=== PATIENT | female | born 1985 | race Caucasian/White ===

== ENCOUNTER 2020-10-06 12:49 | Inpatient (IN) | payer SELFPAY ==
--- NOTE | 2020-10-06 12:57 | W.ED.PSYCH ---
Documented by User: SORAIDA Kinsey 10/06/20 14:49 HPI - Psych General: Chief Complaint: Psychiatric Symptoms Stated Complaint: psych eval Time Seen by Provider: 10/06/20 12:50 Source: patient Mode of arrival: ambulatory Limitations: no limitations History of Present Illness: HPI Narrative: Patient is a 35-year-old female who presents to ED today hoping to receive some psychiatric help in regards to her severe fluctuations in emotions. Patient tells me she recently checked herself into a drug rehabilitation center in [place], [place]. 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 Patient tells me she feels determined to stay clean and wants to stay at the rehab facility however she finds herself struggling immensely with emotional lability. Patient states she becomes very irritated and agitated during therapy sessions. She will often cry hysterically. She has irrational fears of being locked up forever . Patient tells me she suffers from a great deal of PTSD that has been untreated. She states her mother committed suicide when she was 13 years old. She states she was when she was 16 years old. She has had her kids taken from her due to her previous drug use. Patient is not suicidal or homicidal. She is not experiencing hallucinations. Onset (ago): day(s) Duration: constant Context: other (in rehab) Associated psychiatric symptoms: racing thoughts Associated symptoms: Deny auditory hallucinations, visual hallucinations, depression, homicidal ideation or suicidal ideation Treatments prior to arrival: none Review of Systems Const: Denies: fever(s) or chills Card: Denies: chest pain, palpitations, lightheadedness or syncope Resp: Denies: dyspnea GI: Denies: abdominal pain, nausea, vomiting or diarrhea Skin/Breast: Denies: rash Neuro: Denies: headache(s) Psych: Reports: anxiety, mood swings and irritability; Denies: depression, visual hallucinations, auditory hallucinations, suicidal ideation or homicidal ideation Physical Exam Const: COMMON NORMALS: no acute distress, patient oriented x3, alert and well nourished GENERAL APPEARANCE: cooperative ORIENTATION/CONSCIOUSNESS: Yes awake, Yes oriented to person, Yes oriented to place and Yes oriented to time Resp: COMMON NORMALS: normal respiratory effort and clear to auscultation bilaterally AUSCULTATION: clear to auscultation bilaterally Cardio: COMMON NORMALS: regular rate and regular rhythm RATE: regular rate RHYTHM: regular rhythm Neuro: JUAN COMA SCALE: document GCS findings [place] coma scale eye opening: Spontaneous Juan coma scale verbal response: Orientated Juan coma scale motor response: Obey commands Juan coma scale total score: 15 COMMON NORMALS: patient oriented x3 SENSORIUM/ORIENTATION: Yes alert, Yes oriented to person, Yes oriented to place and Yes oriented to time Psych: COMMON NORMALS: mental status grossly normal, Normal thought process present, cooperative, denies hallucinations, denies homicidal ideation and denies suicidal ideation APPEARANCE: Yes grossly normal ATTITUDE: Yes calm ACTIVITY/MOTOR BEHAVIOR: Yes appropriate eye contact and Yes hyperactivity SPEECH: Yes excessive MOOD & AFFECT: Yes tearful, Yes fearful and Yes Labile affect present THOUGHT PROCESS: Normal thought process present THOUGHT CONTENT: Yes Normal thought content present ATTENTION/CONCENTRATION: Yes attention grossly intact and Yes concentration grossly intact MEMORY/COGNITION: Yes memory grossly intact and Yes cognition grossly intact INSIGHT: Good insight present (Psych) JUDGEMENT: Good judgement present (Psych) MDM - Psych Lab Data: Labs: Lab Results 10/06/20 10/06/20 10/06/20 Range/Units 13:26 13:26 13:26 WBC 9.7 (4.0-10.0) 10^3/ uL RBC 5.08 (4.1-5.3) 10^6/u L Hgb 14.0 (11.5-15.3) g/dL Hct 43.6 (37.0-47.0) % MCV 85.8 (81-99) fL MCH 27.6 L (28.0-34.0) pg MCHC 32.1 (30.0-36.0) g/dL RDW 13.5 (12.1-15.1) % Plt Count 244 (130-400) 10^3/c mm MPV 11.3 H (7.4-10.4) fL Neut % (Auto) 72.6 % Lymph % (Auto) 20.3 % Beckham % (Auto) 4.8 % Eos % (Auto) 0.9 % Baso % (Auto) 0.9 % Neut # (Auto) 7.01 (1.8-7.7) 10^3/u L Lymph # (Auto) 2.0 (0.8-4.8) 10^3/u L Beckham # (Auto) 0.5 (0.2-0.9) 10^3/u L Eos # (Auto) 0.1 (0.0-0.8) 10^3/u L Baso # (Auto) 0.1 (0.0-0.1) 10^3/u L Nucleated RBC % (a uto) 0 % Nucleated RBCs # 0.0 /100WBC Sodium 142 (136-145) mmol/L Potassium 3.8 (3.5-5.1) mmol/L Chloride 103 (98-107) mmol/L Carbon Dioxide 26 (22-29) mmol/L Anion Gap 16.8 (5-19) BUN 11 (6-20) mg/dL Creatinine 0.6 (0.5-0.9) mg/dL GFR Calculation 115.1 (90-130) mL/min Glucose 115 (65-115) mg/dL Calculated Osmolal ity 294 (285-295) mOsm/k g Calcium 9.2 (8.5-10.5) mg/dL Total Bilirubin 0.2 (0.15-1.2) mg/dL AST 17 (0-32) U/L ALT 15 (0-33) U/L Alkaline Phosphata se 56 (35-105) IU/L Total Protein 6.9 (6.6-8.7) g/dL Albumin 4.4 (3.5-5.2) g/dL Globulin 2.5 (1.3-4.6) g/dL HCG, Qual Negative (Negative) Salicylates < 0.3 L (3-10) mg/dL Urine Opiates Scre en (Negative) ng/mL Acetaminophen 12.6 (10-30) ug/mL Ur Barbiturates Sc reen (Negative) ng/mL Ur Phencyclidine S crn (Negative) ng/mL Ur Amphetamines Sc reen (Negative) ng/mL U Benzodiazepines Scrn (Negative) ng/mL Urine Cocaine Scre en (Negative) ng/mL U Marijuana (THC) Screen (Negative) ng/mL Ethyl Alcohol < 10 (0-10) mg/dL 10/06/20 Range/Units 13:38 WBC (4.0-10.0) 10^3/ uL RBC (4.1-5.3) 10^6/u L Hgb (11.5-15.3) g/dL Hct (37.0-47.0) % MCV (81-99) fL MCH (28.0-34.0) pg MCHC (30.0-36.0) g/dL RDW (12.1-15.1) % Plt Count (130-400) 10^3/c mm MPV (7.4-10.4) fL Neut % (Auto) % Lymph % (Auto) % Beckham % (Auto) % Eos % (Auto) % Baso % (Auto) % Neut # (Auto) (1.8-7.7) 10^3/u L Lymph # (Auto) (0.8-4.8) 10^3/u L Beckham # (Auto) (0.2-0.9) 10^3/u L Eos # (Auto) (0.0-0.8) 10^3/u L Baso # (Auto) (0.0-0.1) 10^3/u L Nucleated RBC % (a uto) % Nucleated RBCs # /100WBC Sodium (136-145) mmol/L Potassium (3.5-5.1) mmol/L Chloride (98-107) mmol/L Carbon Dioxide (22-29) mmol/L Anion Gap (5-19) BUN (6-20) mg/dL Creatinine (0.5-0.9) mg/dL GFR Calculation (90-130) mL/min Glucose (65-115) mg/dL Calculated Osmolal ity (285-295) mOsm/k g Calcium (8.5-10.5) mg/dL Total Bilirubin (0.15-1.2) mg/dL AST (0-32) U/L ALT (0-33) U/L Alkaline Phosphata se (35-105) IU/L Total Protein (6.6-8.7) g/dL Albumin (3.5-5.2) g/dL Globulin (1.3-4.6) g/dL HCG, Qual (Negative) Salicylates (3-10) mg/dL Urine Opiates Scre en Negative (Negative) ng/mL Acetaminophen (10-30) ug/mL Ur Barbiturates Sc reen Negative (Negative) ng/mL Ur Phencyclidine S crn Negative (Negative) ng/mL Ur Amphetamines Sc reen Negative (Negative) ng/mL U Benzodiazepines Scrn Negative (Negative) ng/mL Urine Cocaine Scre en Negative (Negative) ng/mL U Marijuana (THC) Screen Negative (Negative) ng/mL Ethyl Alcohol (0-10) mg/dL Discharge Plan Discharge Patient Disposition: Admitted As Inpatient Admit Provider: Ritchie Salas Clinical Impression: Emotional lability Condition: Stable Coding Level of Care Code ED Audiovisual Technician for Chg Fwd Exam Detailed Documented by User: Luis Alberto Real MD 10/07/20 18:12 HPI - Psych General: Chief Complaint: Psychiatric Symptoms Stated Complaint: psych eval Time Seen by Provider: 10/06/20 12:50 MDM - Psych Lab Data: Labs: Lab Results 10/06/20 10/06/20 10/06/20 Range/Units 13:26 13:26 13:26 WBC 9.7 (4.0-10.0) 10^3/ uL RBC 5.08 (4.1-5.3) 10^6/u L Hgb 14.0 (11.5-15.3) g/dL Hct 43.6 (37.0-47.0) % MCV 85.8 (81-99) fL MCH 27.6 L (28.0-34.0) pg MCHC 32.1 (30.0-36.0) g/dL RDW 13.5 (12.1-15.1) % Plt Count 244 (130-400) 10^3/c mm MPV 11.3 H (7.4-10.4) fL Neut % (Auto) 72.6 % Lymph % (Auto) 20.3 % Beckham % (Auto) 4.8 % Eos % (Auto) 0.9 % Baso % (Auto) 0.9 % Neut # (Auto) 7.01 (1.8-7.7) 10^3/u L Lymph # (Auto) 2.0 (0.8-4.8) 10^3/u L Beckham # (Auto) 0.5 (0.2-0.9) 10^3/u L Eos # (Auto) 0.1 (0.0-0.8) 10^3/u L Baso # (Auto) 0.1 (0.0-0.1) 10^3/u L Nucleated RBC % (a uto) 0 % Nucleated RBCs # 0.0 /100WBC Sodium 142 (136-145) mmol/L Potassium 3.8 (3.5-5.1) mmol/L Chloride 103 (98-107) mmol/L Carbon Dioxide 26 (22-29) mmol/L Anion Gap 16.8 (5-19) BUN 11 (6-20) mg/dL Creatinine 0.6 (0.5-0.9) mg/dL GFR Calculation 115.1 (90-130) mL/min Glucose 115 (65-115) mg/dL Calculated Osmolal ity 294 (285-295) mOsm/k g Calcium 9.2 (8.5-10.5) mg/dL Total Bilirubin 0.2 (0.15-1.2) mg/dL AST 17 (0-32) U/L ALT 15 (0-33) U/L Alkaline Phosphata se 56 (35-105) IU/L Total Protein 6.9 (6.6-8.7) g/dL Albumin 4.4 (3.5-5.2) g/dL Globulin 2.5 (1.3-4.6) g/dL HCG, Qual Negative (Negative) Salicylates < 0.3 L (3-10) mg/dL Urine Opiates Scre en (Negative) ng/mL Acetaminophen 12.6 (10-30) ug/mL Ur Barbiturates Sc reen (Negative) ng/mL Ur Phencyclidine S crn (Negative) ng/mL Ur Amphetamines Sc reen (Negative) ng/mL U Benzodiazepines Scrn (Negative) ng/mL Urine Cocaine Scre en (Negative) ng/mL U Marijuana (THC) Screen (Negative) ng/mL Ethyl Alcohol < 10 (0-10) mg/dL 10/06/20 Range/Units 13:38 WBC (4.0-10.0) 10^3/ uL RBC (4.1-5.3) 10^6/u L Hgb (11.5-15.3) g/dL Hct (37.0-47.0) % MCV (81-99) fL MCH (28.0-34.0) pg MCHC (30.0-36.0) g/dL RDW (12.1-15.1) % Plt Count (130-400) 10^3/c mm MPV (7.4-10.4) fL Neut % (Auto) % Lymph % (Auto) % Beckham % (Auto) % Eos % (Auto) % Baso % (Auto) % Neut # (Auto) (1.8-7.7) 10^3/u L Lymph # (Auto) (0.8-4.8) 10^3/u L Beckham # (Auto) (0.2-0.9) 10^3/u L Eos # (Auto) (0.0-0.8) 10^3/u L Baso # (Auto) (0.0-0.1) 10^3/u L Nucleated RBC % (a uto) % Nucleated RBCs # /100WBC Sodium (136-145) mmol/L Potassium (3.5-5.1) mmol/L Chloride (98-107) mmol/L Carbon Dioxide (22-29) mmol/L Anion Gap (5-19) BUN (6-20) mg/dL Creatinine (0.5-0.9) mg/dL GFR Calculation (90-130) mL/min Glucose (65-115) mg/dL Calculated Osmolal ity (285-295) mOsm/k g Calcium (8.5-10.5) mg/dL Total Bilirubin (0.15-1.2) mg/dL AST (0-32) U/L ALT (0-33) U/L Alkaline Phosphata se (35-105) IU/L Total Protein (6.6-8.7) g/dL Albumin (3.5-5.2) g/dL Globulin (1.3-4.6) g/dL HCG, Qual (Negative) Salicylates (3-10) mg/dL Urine Opiates Scre en Negative (Negative) ng/mL Acetaminophen (10-30) ug/mL Ur Barbiturates Sc reen Negative (Negative) ng/mL Ur Phencyclidine S crn Negative (Negative) ng/mL Ur Amphetamines Sc reen Negative (Negative) ng/mL U Benzodiazepines Scrn Negative (Negative) ng/mL Urine Cocaine Scre en Negative (Negative) ng/mL U Marijuana (THC) Screen Negative (Negative) ng/mL Ethyl Alcohol (0-10) mg/dL Discharge Plan Discharge Patient Disposition: Admitted As Inpatient Admit Provider: Ritchie Salas Clinical Impression: Emotional lability Condition: Stable Coding Level of Care Code ED Audiovisual Technician for [facility] Fwd Exam Detailed
[2020-10-06 13:01] VITALS: BP 132/77; PULSE 114; RESP 18; TEMP 36.7; O2SAT 99; BMI 25.7
[2020-10-06 13:36] LABS: Basophils # 0.1 10^3/uL (0.0-0.1); Basophils % 0.9 %; Eosinophils # 0.1 10^3/uL (0.0-0.8); Eosinophils % 0.9 %; Hematocrit 43.6 % (37.0-47.0); Lymphocytes % 20.3 %; Mean Corpuscular HGB Conc 32.1 g/dL (30.0-36.0); Mean Corpuscular Hemoglobin 27.6 pg (28.0-34.0); Mean Corpuscular Volume 85.8 fL (81-99); Mean Platelet Volume 11.3 fL (7.4-10.4); Monocytes # 0.5 10^3/uL (0.2-0.9); Monocytes % 4.8 %; Neutrophils # 7.01 10^3/uL (1.8-7.7); Neutrophils % 72.6 %; Nucleated Red Blood Cells % 0 %; Platelet Count 244 10^3/cmm (130-400); Red Blood Count 5.08 10^6/uL (4.1-5.3); Red Cell Distribution Width 13.5 % (12.1-15.1); White Blood Count 9.7 10^3/uL (4.0-10.0)
[2020-10-06 13:51] LABS: Acetaminophen 12.6 ug/mL (10-30); Alanine Aminotransferase 15 U/L (0-33); Albumin Level 4.4 g/dL (3.5-5.2); Alcohol Level < 10 mg/dL (0-10); Alkaline Phosphatase 56 IU/L (35-105); Anion Gap 16.8 (5-19); Aspartate Amino Transferase 17 U/L (0-32); Blood Urea Nitrogen 11 mg/dL (6-20); Calcium 9.2 mg/dL (8.5-10.5); Carbon Dioxide 26 mmol/L (22-29); Chloride 103 mmol/L (98-107); Globulin 2.5 g/dL (1.3-4.6); Glomerular Filtration Rate 115.1 mL/min (90-130); Glucose 115 mg/dL (65-115); Osmolality Calculated 294 mOsm/kg (285-295); Potassium 3.8 mmol/L (3.5-5.1); Salicylate < 0.3 mg/dL (3-10); Sodium 142 mmol/L (136-145); Total Bilirubin 0.2 mg/dL (0.15-1.2); Total Protein 6.9 g/dL (6.6-8.7)
[2020-10-06 14:43] LABS: HCG, Serum Qual Negative (Negative)
[2020-10-06 14:44] LABS: Amphetamines Screen Urine Negative (Negative); Barbiturates Screen Urine Negative (Negative); Benzodiazepines Screen Urine Negative (Negative); Cocaine Screen Urine Negative (Negative); Opiate Screen Urine Negative (Negative); PCP Screen Urine Negative (Negative); THC Screen Urine Negative (Negative)
[2020-10-06 15:18] VITALS: BP 116/81; PULSE 111; RESP 18; TEMP 36.7; O2SAT 97
[2020-10-06] MEDS: nicotine 2 mg Gum BUCCAL ×2 (16:01→19:22)
[2020-10-06] MEDS: hyDROXYzine 25 mg Capsule 50 MG PO (16:27)
--- NOTE | 2020-10-06 17:21 | PC.NURSE ---
1625: Patient presents to the Nurses Station tearful stating she needs something for her nerves. Offered her Vistaril and she agreed to take the medication. Vistaril administered per order. Will continue to closely monitor. ADRIEL JAY
[2020-10-06 19:36] VITALS: BP 97/59; PULSE 93; RESP 18; TEMP 37.1; O2SAT 97
[2020-10-07 06:00] VITALS: BP 106/63; PULSE 75; RESP 16; TEMP 36.7; O2SAT 97
[2020-10-07] MEDS: nicotine 2 mg Gum BUCCAL ×2 (09:32→14:15)
[2020-10-07] MEDS: citalopram 20 mg Tablet 10 MG PO (11:11)
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
[2020-10-07 12:49] VITALS: BP 107/57; PULSE 77; RESP 17; TEMP 36.8; O2SAT 95
[2020-10-07] MEDS: hyDROXYzine 25 mg Capsule 50 MG PO (15:38)
--- NOTE | 2020-10-07 15:40 | PC.NURSE ---
PRN Vistaril/increased anxiety Patient is at nurses station, tearful, asking about discharge plans to rehab, and concerns about whether it will be outpatient or inpatient. Requesting something for anxiety. PRN Vistaril given at this time.
[2020-10-07 19:36] VITALS: BP 109/68; PULSE 87; RESP 15; TEMP 36.9; O2SAT 96
--- NOTE | 2020-10-07 21:27 | PC.NURSE ---
PM assessment Pt denies pain, denies AH/VH, DENIES SI/HI, PT IRRITABLE, WANTS TO REST, WILL CONTINUE TO OBSERVE PT BEHAVIOR FOR ANY BEHAVIOR CHANGES.
[2020-10-08 06:00] VITALS: BP 98/61; PULSE 72; RESP 15; TEMP 36.8; O2SAT 97
[2020-10-08] MEDS: citalopram 20 mg Tablet 10 MG PO (08:24)
[2020-10-08] MEDS: nicotine 2 mg Gum BUCCAL ×3 (09:50→17:13)
[2020-10-08] MEDS: OLANZapine 5 mg TABLET PO ×2 (11:21→20:31)
[2020-10-08 14:00] VITALS: BP 91/63; PULSE 94; RESP 18; TEMP 37; O2SAT 95
--- NOTE | 2020-10-08 15:26 | P.PN_ITS ---
Subjective NPU Subjective: Interval history: Per nurse report, patient has been much more intrusive today, pressured behavior, unusually elevated, pacing up and down the hallway. Patient states that she feels, very happy and excited, denies any interval tearful episodes She denies any auditory or visual destinations, denies any delusions She reports that she slept well last evening and feels rested Reports her appetite is been good Reports being compliant with her medication, denies any medication side effects Mental Status Exam MSE Comments: Appears pressured, elevated, expansive, smiles inappropriately throughout interview, was seen in hallway from a distance trying to jump up and hang from doorway entrance to day room, per nurse report has been inappropriate in conversations with male patients Psychomotor activity, somewhat pressured, no agitation Speech is normal rate and volume, spontaneous, fair articulation, slightly pressured I feel very happy and excited, smiling and appropriately throughout interview Alert and oriented to person, place, time, situation Memory and concentration appear to be intact per interview Thought process, circumstantial, requires redirection Thought content, no delusions, does not appear to be attending to any internal stimuli, no suicidal homicidal ideation Insight and judgment appear to be fair Vitals/I&O/Wt Last Vital Signs Temp 98.6 F 10/08/20 14:00 Pulse 94 10/08/20 14:00 Resp 18 10/08/20 14:00 BP 91/63 10/08/20 14:00 Pulse Ox 95 10/08/20 14:00 Data NPU : 10/06/20 13:26 10/06/20 13:26 A&P Assessment and plan (1) PTSD (post-traumatic stress disorder): Status: Acute (2) Anxiety disorder, unspecified: Status: Acute Qualifiers: Anxiety disorder type: unspecified anxiety disorder Qualified Code(s): F41.9 - Anxiety disorder, unspecified Additional A&P Information Patient initially was emotionally labile, irritable at the time of admission but appears to possibly be experiencing some switching after started on citalopram with current elevated and expansive mood, smiling inappropriately and quite intrusive with other patients. Would benefit from discontinuing citalopram and starting bedtime olanzapine while observing. DISCONTINUE citalopram START olanzapine 5 mg first dose now, scheduled for bedtime Continue coordination for post discharge substance treatment/counseling as well as post discharge medication management Attestations NPU Medical Necessity Statement*: Continues to require psychiatric hospitalization for medication management, coordination for safe discharge Coding Level of Care Code Acute Barometers Calibrator for [facility] Fwd Diagnoses PTSD (post-traumatic stress disorder) F43.10 Anxiety disorder, unspecified F41.9 Anxiety disorder type: unspecified anxiety disorder
[2020-10-08 19:28] VITALS: BP 111/64; PULSE 92; RESP 18; TEMP 36.9; O2SAT 96
--- NOTE | 2020-10-08 21:46 | PC.NURSE ---
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 WHEN PATIENT IS DISTURBED SHE IS RUDE, HER COMMENTS AND LANGUAGE ARE FORCEFUL AND INCLUDE PROFANITY. THIS PATIENT IS RESISTIVE TO CARE, REFUSES TO ENGAGE WITH STAFF, AND MAKES UNPROVOKED COMMENTS TO COMPUTER TAPE LIBRARIAN/NURSING STAFF WHEN INTERVENTIONS ARE NECESSARY. PT DOES NOT COME OUT OF HER ROOM, SHE DOES NOT INTERACT WITH OTHER PATIENTS. REFUSES TO LEAVE THE DOOR OPEN REGARDLESS OF REMINDERS FROM STAFF, SHE IS NON-COMPLIANT TO THE POINT OF INTENTIONAL DEFIANCE. WILL CONTINUE TO OBSERVE PT BEHAVIOR FOR ANY BEHAVIOR CHANGES.
--- NOTE | 2020-10-08 23:27 | PC.NURSE ---
Behavior PT BECAME VERBALLY AGGRESSIVE WITH EVS CREW WHEN THEY ENTERED ROOM TO CLEAN AFTER ANOTHER PATIENT WAS DISCHARGED, SHE IS RUDE WITH STAFF, USES PROFANITY, GOT UP AND SLAMMED THE DOOR. EVS STAFF REDIRECTED FROM ROOM, NEUROPSYCHOLOGY MEDICAL CONSULTANT REMAINED OUTSIDE THE PATIENT ROOM TO OBSERVE OUTCOME. PT EDUCATED REGARDING EXPECTED BEHAVIOR ON THE UNIT, TREATING EACH OTHER WITH MUTUAL RESPECT, TREATMENT OF STAFF, AND KEEPING DOOR OPEN FOR OBSERVATION, AND PARTICIPATING IN HER OWN CARE. PT CONTINUES TO BE RUDE AND CURSE AT EVERY INTERACTION. PT IS RESTING IN HER ROOM, STILL RESISTANT TO CARE, AND BECOMING MORE EXPRESSIVE WITH ANGER SHE SLAMS DOORS AND YELLS. WILL CONTINUE TO MONITOR PT BEHAVIOR.
[2020-10-09 06:00] VITALS: BP 94/54; PULSE 76; RESP 16; TEMP 37.1; O2SAT 98
[2020-10-09] MEDS: nicotine 2 mg Gum BUCCAL ×5 (08:55→20:38)
[2020-10-09] MEDS: benztropine 1 mg Tablet PO (12:26)
[2020-10-09 13:58] VITALS: BP 108/71; PULSE 79; RESP 15; TEMP 36.8; O2SAT 98
[2020-10-09] MEDS: hyDROXYzine 25 mg Capsule 50 MG PO ×2 (16:45→20:38)
--- NOTE | 2020-10-09 16:45 | PC.NURSE ---
Addendum entered by Sushma Driver LPN 10/09/20 18:11: prn med effective no further c/o of anxiety currently. pt watching tv in day room, mood is more calm Original Note: PRN VISTARIL 50 MG GIVEN PO PER PT C/O STATED ANXIETY RAPID PRESSURED SPEECH NOTED.
--- NOTE | 2020-10-09 16:48 | PM.NPN ---
Subjective NPU Subjective: Interval history: Lay presented today reporting that she has made arrangements to [facility] to [facility] and that she was hoping to go sooner rather than later. We discussed that she had a very high energy level and was pacing. We discussed concerns for jhonatan or akathisia. We agreed to give the Zyprexa some more time but discussed the risk benefits and alternatives of a dose of Cogentin to rule out akathisia. She is very agitated after the session going on about 20 medications she had eaten and that she never has taken the medication before. Mental Status Exam MSE Comments: This is a well-nourished, well-developed white female in hospital scrubs with limited grooming but appropriate eye contact. No abnormal movements except for psychomotor agitation. Cooperative with exam and moderate to severe distress. Speech was increased rate and volume. Mood described as fine, affect irritable. Thought process organized. Thought content patient denied suicidal homicidal ideation, no delusions reported or noted, he denied any auditory or visual hallucinations. Attention and concentration were limited memory mostly reliable but none were formally tested. He is alert and oriented x3. Insight and judgment are limited, impulse control is impaired. 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 1. Continue current medication. Encourage trial of Cogentin for possible akathisia. 2. Continue every 15 minute checks for safety. 3. Encourage individual, group and milieu therapies. 4. Encourage sober living treatment after discharge at the highest level of care to which he is willing to commit. Attestations NPU Medical Necessity Statement*: Inpatient hospitalization is medically necessary and the clinically appropriate intervention at this time. We will monitor medications and make changes as indicated. Likely length of stay 1 to 4 days. 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
[2020-10-09] MEDS: OLANZapine 5 mg TABLET PO (20:16)
[2020-10-09] MEDS: trazodone 50 mg Tablet PO (20:38)
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
--- NOTE | 2020-10-09 20:59 | PC.NURSE ---
PRN MEDS PT GIVEN 5O MG TRAZADONE FOR INSOMNIA & 50 MG OF VISTARIL FOR ANXIETY, WILL CONTINUE TO MONITOR.
[2020-10-09 22:00] VITALS: BP 99/59; PULSE 102; RESP 16; TEMP 529.8; TEMP 985.6; O2SAT 98
--- NOTE | 2020-10-09 23:44 | PC.NURSE ---
RACHEL PT IN BED RESTING O S/S OF DISTRESS, WILL CONTINUE TO MONITOR.
[2020-10-10 05:30] VITALS: BP 110/85; PULSE 91; RESP 16; TEMP 36.9; O2SAT 98
[2020-10-10] MEDS: nicotine 2 mg Gum BUCCAL (11:50)
[2020-10-10 14:00] VITALS: BP 111/78; PULSE 89; RESP 20; TEMP 36.8; O2SAT 98
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
[2020-10-10 15:39] VITALS: BP 111/78; PULSE 89; RESP 20; TEMP 36.8; O2SAT 98
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
== END 2020-10-10 15:59 | disposition home or self-care (01) | DRG 880 ==
LOC: ER 14:45 → NP 14:59
PROVIDERS: Admitting Provider Psychiatry & Neurology Psychiatry; Emergency Provider Physician Assistant; PCP Counselor Professional; Visit Provider Psychiatry & Neurology Psychiatry
DX: F41.9 Anxiety disorder, unspecified (principal); F43.10 Post-traumatic stress disorder, unspecified; Z81.8 Family history of other mental and behavioral disorders
CPT/HCPCS: 80053; 80306; 80307; 84703; 85025; 99283